=== PATIENT | male | born 1985 | race Caucasian/White ===

== ENCOUNTER 2019-08-24 09:47 | Emergency (ER) | payer MEDICAID ==
[~2019-08-24] VITALS: Ht 170.2 cm; Wt 95.7 kg
[2019-08-24 10:04] VITALS: BP 143/85
--- NOTE | 2019-08-24 10:08 | NUR ---
C/O LACERATION TO PTS NOSE X [phone]. MILD PAIN 09/04. PT STATES BLEEDING INITIALLY BUT STOPPED AFTER HE APPLIED NEOSPORIN OINTMENT. PIPE BROKE OFF TRUCK AND HIT NOSE UNKNOWN LAST TDAP VACCINE VSS; BED LOCKED & LOW; BEDRAILS UP X1; ERMD TO [place]ALUTE. HX- DENIES
--- NOTE | 2019-08-24 11:09 | NUR ---
DR JACOB SPEAKING WITH PT AT BEDSIDE
[2019-08-24] MEDS ORDERED: IBUPROFEN 800 MG TAB PO ONE (11:25)
[2019-08-24] MEDS ORDERED: NEOMYCIN/POLYMYXIN/BACITRACIN 0.9 GM/1 PKT TP ONE (11:25)
--- NOTE | 2019-08-24 11:32 | NUR ---
CLEANED AND APPLIED NEOSPORING TO LEFT SIDE OF NOSE WITHOUT ANY ISSUES. APPLIED BANDAID AFTER.
[2019-08-24 11:53] VITALS: BP 134/76
== END 2019-08-24 11:50 | disposition home or self-care (01) ==
LOC: MED 09:47
DX: S00.31XA Abrasion of nose, initial encounter (principal); W22.8XXA Striking against or struck by other objects, initial encounter; Y93.89 Activity, other specified; Y92.89 Other specified places as the place of occurrence of the external cause; Y99.8 Other external cause status
CPT/HCPCS: 90471; 90715; 99283